=== PATIENT | male | born 1945 | race Caucasian/White ===

== ENCOUNTER 2020-10-12 12:15 | Emergency (ER) | payer MEDICARE, OTHER ==
[~2020-10-12] VITALS: Ht 177.8 cm; Wt 84.0 kg
--- NOTE | 2020-10-12 12:26 | PHYS DOC ---
Past History Past Medical History: CAD Adult General Chief Complaint Chief Complaint: CHEST PAIN HPI HPI Patient is a 74-year-old male presenting with from home for chest pain. This is an acute on chronic issue. Patient reports feeling twinges of left- sided breast pain that have been occurring sporadically but with increased frequency over the last 2 weeks. States he contacted his precision honing machine operator approximately 2 weeks ago regarding increased frequency of events and it was advised that he present to the ER if you experience another with outpatient follow-up scheduled for this upcoming Wednesday. Nonetheless, patient reports experiencing episodes "on most days" of the week since this discussion but has not come in for evaluation. Most recent episode occurred this morning shortly after waking up without significant physical exertion. Nothing known made better or worse. Pain described as tightness/twinge over left breast without radiation. Reports episodes last from 30 minutes to a few hours and resolved without any intervention. He has significant history for coronary artery disease and has had stents in the past, currently taking Plavix and well covered in outpatient setting. Patient reports ongoing symptoms concerned him and prompting him to come in today for evaluation. On arrival, patient is asymptomatic Review of Systems Review of Systems Fourteen body systems of review of systems have been reviewed. See HPI for pertinent positives and negative responses, other crenshaw all other systems are negative, non-pertinent or non-contributory Physical Exam Physical Exam Constitutional: Well developed, well nourished, no acute distress, non-toxic appearance. HENT: Normocephalic, atraumatic, bilateral external ears normal, oropharynx moist, no oral exudates, nose normal. Eyes: PERRLA, EOMI, conjunctiva normal, no discharge. Neck: Normal range of motion, no tenderness, supple, no stridor. Cardiovascular: Heart rate regular, sinus rhythm, no murmurs rubs or gallops Lungs & Thorax: Bilateral breath sounds clear to auscultation Abdomen: Bowel sounds normal, soft, no tenderness, no masses, no pulsatile masses. Nonsurgical abdomen, no peritoneal signs Skin: Warm, dry, no erythema, no rash. Back: No tenderness, no CVA tenderness. Extremities: No tenderness, no cyanosis, no clubbing, ROM intact, no edema. Neurologic: Alert and oriented X 3, grossly normal motor & sensory function, no focal deficits noted. Psychologic: Affect normal, judgement normal, mood normal. Current Patient Data Vital Signs Vital Signs Date Time Temp Pulse Resp B/P (MAP) Pulse Ox O2 Delivery O2 Flow Rate FiO2 10/12/20 12:17 97.9 65 16 121/73 (89) 96 Room Air Vital Signs Date Time Temp Pulse Resp B/P (MAP) Pulse Ox O2 Delivery O2 Flow Rate FiO2 10/12/20 15:50 58 16 116/67 (83) 96 10/12/20 12:17 97.9 Room Air Lab Results Laboratory Tests Test 10/12/20 16:00 Troponin I Quantitative < 0.017 ng/mL Current Medications Medications (Trade) Dose Ordered Sig/Olu Route PRN Reason Start Time Stop Time Status Last Admin Dose Admin Aspirin (Sienna Aspirin) 162 mg 1X ONCE PO 10/12/20 13:30 10/12/20 13:40 DC 10/12/20 14:53 EKG EKG EKG ordered and interpreted by myself 1225 hrs. as sinus rhythm at 65 bpm, unremarkable intervals, left axis deviation, no acute ischemic findings, x1 PVC present on EKG strip, no STEMI Radiology/Procedures Radiology/Procedures XR CHEST 1V Clinical Indication: Reason: CHEST PAIN / Spl. Instructions: / History: Comparison: AP chest, FebruaryMarch 12, 2010. Findings: The cardiomediastinal silhouette is normal. There is minimal discoid atelectasis or scarring in the bilateral lung bases. Lungs are otherwise clear. There is no pneumothorax. No pleural effusion is appreciated. No acute bone abnormality. IMPRESSION: No acute cardiopulmonary process. Electronically signed by: Berlin Barber MD (10/12/2020 1:06 PM) [id number] Heart Score C/O Chest Pain: Yes HEART Score for Chest Pain: HEART Score for Chest Pain Response (Comments) Value History Moderately Suspicious 1 ECG Nonspecific Repolarizatio 1 Age > 65 2 Risk Factors >3 Risk Factors or Hx CAD 2 Troponin < Normal Limit 0 Total 6 Risk Factors: Risk Factors: DM, Current or recent (<one month) smoker, HTN, HLP, family history of CAD, obesity. Risk Scores: Risk Factors: DM, Current or recent (<one month) smoker, HTN, HLP, family history of CAD, obesity. Course & Med Decision Making Course & Med Decision Making Hemodynamically stable patient with HPI and physical exam concerning for chest pain with cardiac etiology and high risk patient. ER work-up ensued and unremarkable for emergent or surgical findings I discussed heart score with patient and , I recommended hospital admission. He deferred. He states "I know what was going to happen, I just wanted to come make sure nothing was wrong right now". States that he has good access to primary care physician and has cardiology appointment previously scheduled this upcoming Wednesday. States he knows return precautions given his extensive history of coronary artery disease. I again recommended and stressed need for cardiac observation but patient co ntinued to decline. All questions and concerns addressed prior to departure [facility] Disclaimer Dragon Disclaimer This electronic medical record was generated, in whole or in part, using a voice recognition dictation system. Departure Departure: Impression: Primary Impression: Chest pain, unspecified Disposition: HOME / SELF CARE / HOMELESS Condition: STABLE Referrals: TICO HAYNES MD (PCP) Additional Instructions: You were seen for chest pain. Your workup did not show any acute abnormalities today. With that said, it was recommended that you stay for cardiac observation but you deferred. As such, you need to contact your primary care physician first thing Wednesday morning to review ER visit today. In addition, you should contact your precision honing machine operator whom you already have outpatient follow-up scheduled this upcoming Wednesday. You should return to the ED if you develop worsening chest pain, shortness of breath, fever, abnormal sweating, leg swelling, or any other new or concerning symptoms. It was a pleasure to take care of you and I wish you the best going forward TERESA SKELTON DO October 12, 2020 12:26
--- NOTE | 2020-10-12 12:34 | EKG ---
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
--- NOTE | 2020-10-12 13:08 | RAD ---
XR CHEST 1V Clinical Indication: Reason: CHEST PAIN / Spl. Instructions: / History: Comparison: AP chest, FebruaryMarch 12, 2010. Findings: The cardiomediastinal silhouette is normal. There is minimal discoid atelectasis or scarring in the b ilateral lung bases. Lungs are otherwise clear. There is no pneumothorax. No pleural effusion is appr eciated. No acute bone abnormality. IMPRESSION: No acute cardiopulmonary process. Electronically signed by: Berlin Barber MD (10/12/2020 1:06 PM) [id number]
[2020-10-12 13:21] LABS: BASO % 0 % (0-3); EOS # 0.1 x10^3/uL (0.0-0.7); EOS % 1 % (0-3); HEMATOCRIT 41.6 % (39.0-53.0); LYMPH % 21 % (24-48); MEAN CORPUSCULAR HEMOGLOBIN 32 pg (25-35); MEAN CORPUSCULAR HGB CONC 34 g/dL (31-37); MEAN CORPUSCULAR VOLUME 96 fL (79-100); MONO # 0.5 x10^3/uL (0.0-1.1); MONO % 11 % (0-9); NEUT # 3.2 x10^3uL (1.8-7.7); NEUT % 66 % (31-73); PLATELET COUNT 170 x10^3/uL (140-400); RED BLOOD COUNT 4.32 x10^6/uL (4.30-5.70); RED CELL DISTRIBUTION WIDTH 13.9 % (11.5-14.5); WHITE BLOOD COUNT 4.8 x10^3/uL (4.0-11.0)
[2020-10-12 13:26] LABS: CALCIUM 8.9 mg/dL (8.5-10.1); CREATININE 1.5 mg/dL (0.7-1.3); GFR 45.5; POTASSIUM 4.5 mmol/L (3.5-5.1)
[2020-10-12] MEDS ORDERED: ASPIRIN 325 MG TABLET PO ONE (13:30)
[2020-10-12 15:50] VITALS: BP 116/67
== END 2020-10-12 16:17 | disposition home or self-care (01) ==
LOC: ER 12:15
DX: R07.89 Other chest pain (principal)
CPT/HCPCS: 36415; 71045; 80048; 83880; 84484; 85025; 93005; 99285-25